=== PATIENT | female | born 1960 | race Caucasian/White ===

== ENCOUNTER → 2016-07-14 | Outpatient (CLI) | payer BC ==
[~2016-07-14] MED LIST: LEVO25TA PO; MULT-506 PO; THY/30 PO
--- NOTE | 2016-07-15 08:26 | MAMMOGRAPHY REPORT ---
BILATERAL DIGITAL SCREENING MAMMOGRAM TOMOSYNTHESIS WITH CAD: 07/14/2016 CLINICAL HISTORY: Routine screening. Patient has no complaints. TECHNIQUE: Breast tomosynthesis in addition to standard 2D mammography was performed. Current study was also evaluated with a Computer Aided Detection (CAD) system. COMPARISON: Comparison is made to exams dated: 06/07/2015 mammogram, 08/05/2012 mammogram, 02/27/2011 mammogram, 10/30/2009 mammogram - [facility], 10/26/2008, and 09/03/2006. BREAST COMPOSITION: The tissue of both breasts is heterogeneously dense, which may obscure small ma sses. FINDINGS: There is a small cluster of microcalcifications in the upper outer posterior right breast , for which additional spot magnification views are recommended. There are other scattered benign-appearing rim calcifications in the breasts. No other suspicious m ass, architectural distortion or cluster of microcalcifications is seen. IMPRESSION: ACR BI-RADS CATEGORY 0: INCOMPLETE EVALUATION: NEED ADDITIONAL IMAGING EVALUATION The small cluster of microcalcifications in the upper outer posterior right breast need additional e valuation. The patient will be called to schedule an appointment. Approximately 10% of breast cancers are not detected with mammography. A negative mammographic repor t should not delay biopsy if a clinically suggestive mass is present. Jaida Altamirano M.D. ay/:07/14/2016 17:35:30 Needle Grader: Kaleigh FORD)(Amanda), [facility] letter sent: Addl Imaging 0 BI-RADS Code: ACR BI-RADS Category 0: Incomplete Evaluation: Need Additional Imaging Evaluation
== END | disposition home or self-care (01) ==
LOC: C.MAMM 13:33
PROVIDERS: ATTEND Physician Assistant
DX: Z12.31 Encounter for screening mammogram for malignant neoplasm of breast (principal); R92.0 Mammographic microcalcification found on diagnostic imaging of breast

== ENCOUNTER → 2016-07-22 | Outpatient (CLI) | payer BC ==
--- NOTE | 2016-07-22 13:18 | MAMMOGRAPHY REPORT ---
UNILATERAL RIGHT DIGITAL DIAGNOSTIC MAMMOGRAM: 07/22/2016 CLINICAL HISTORY: 56 year old woman called back from screening mammography for a small cluster of mi crocalcifications in the upper outer posterior right breast. TECHNIQUE: Spot magnification right CC and ML views were obtained. COMPARISON: Comparison is made to exams dated: 07/14/2016 mammogram, 06/07/2015 mammogram, 08/05/2012 m ammogram, 02/27/2011 mammogram, 10/30/2009 mammogram - [facility], and 10/26/2008. BREAST COMPOSITION: The tissue of the right breast is heterogeneously dense, which may obscure smal l masses. FINDINGS: There is a small, 1.5 mm cluster of somewhat pleomorphic microcalcifications in the upper outer posterior right breast, new compared to prior exams. No obvious associated mass or it business process architect ural distortion. There are also a few new benign rim calcifications in the visualized right breast. The cluster microcalcifications is indeterminate, warranting further evaluation with tissue sampli ng. IMPRESSION: ACR BI-RADS CATEGORY 4: SUSPICIOUS Right breast stereotactic guided biopsy is recommended for a new small, 1.5 mm cluster of pleomorphi c microcalcifications in the upper outer posterior breast. These results and recommendations were discussed with the patient at the time of the exam. She tent atively scheduled the biopsy prior to leaving our department. CURRENT PENRAD IMPRESSIONS: Approximately 10% of breast cancers are not detected with mammography. A negative mammographic repor t should not delay biopsy if a clinically suggestive mass is present. Jaida Altamirano M.D. ay/:07/22/2016 15:19:12 Hose Inspector And Patcher: Shavonne Chiang RT(R)(M), [facility] letter sent: Abnormal 4/5 BI-RADS Code: ACR BI-RADS Category 4: Suspicious
== END | disposition home or self-care (01) ==
LOC: C.MAMM 08:12
PROVIDERS: ATTEND Physician Assistant
DX: R92.0 Mammographic microcalcification found on diagnostic imaging of breast (principal)

== ENCOUNTER → 2016-07-29 | Outpatient (CLI) | payer BC ==
--- NOTE | 2016-07-29 14:58 | Discharge Instructions ---
Discharge Instructions Procedure Procedure Date: July 29, 2016. Reason for visit: Right Calcifications. Discharge Discharge Date: July 29, 2016. Discharge Diagnosis: post right breast stereotactic guided biopsy Instructions Activity Recommendations: Additional Limitations (see below) Return to School/Work: no limitations Recommended Home Diet: No Limitations Provider Instructions: ACTIVITY RECOMMENDATIONS: * No lifting, pushing, pulling or exercising the affected side for three days. RETURN TO SCHOOL/WORK: * You may return to work/school after the procedure, but do not perform any strenuous activities for 24 to 48 hours. MEDICATIONS: * Tylenol (two 325 mg) every four to six hours if needed for mild pain (if not allergic to Tylenol). DIET: * Resume previous diet. SPECIAL CARE INSTRUCTIONS: * Keep biopsy site dry for 24 hours. May shower after 24 hours, but do not soak (bathe) incision. * May remove Tegaderm (plastic patch) tomorrow AFTER showering. * Leave the steri-strips on for one week. Allow the steri-strips to fall off by themselves. If not off after one week, you may remove them. You may place a Bandaid crosswise over the strips, if desired. * Apply ice 10 minutes on and 10 minutes off as needed. * Wear a bra at bedtime to sleep more comfortably for 2-3 days. * Your referring physician should have the results after approximately 5 to 7 business days. * Call for unusual bleeding, fever, drainage, etc or if you have any questions call [phone] during normal business hours or after hours call Dr Altamirano, . FOLLOW UP VISIT: Follow-up with Referring Physician as scheduled. Allergies Coded Allergies: Prednisone (Unverified Adverse Reaction, Unknown, UNKNOWN, 07/14/16) Nancy Mcqueen Recommendations: Call your doctor if: * Temperature above 101 degrees * Pain not relieved by pain medicine ordered * There is increased drainage or redness from any incision * You have any unanswered questions or concerns. Your Doctors Instructions noted above were prepared by provider Jaida Altamirano. Patient Signature Section: Patient Instructions Signature Page Kimberli Jose Patient (or Guardian) Signature/Date: I have read and understand the instructions given to me by my caregivers. Caregiver/RN/Doctor Signature/Date: The above-named patient and/or guardian has received patient instructions on this date. + Original Patient Signature Page (only) stays with chart. Please make copy for patient.
--- NOTE | 2016-07-30 13:07 | MAMMOGRAPHY REPORT ---
UNILATERAL RIGHT DIGITAL DIAGNOSTIC MAMMOGRAM: 07/29/2016 CLINICAL HISTORY: Status post right breast stereotactic guided biopsy of a small cluster of microcal cifications in the upper outer posterior breast. Please refer to the report for right breast stereotactic guided biopsy performed at the same time fo r full detail. IMPRESSION: POST PROCEDURE IMAGING FOR MARKER PLACEMENT Please refer to the report for right breast stereotactic guided biopsy performed at the same time fo r full detail. Approximately 10% of breast cancers are not detected with mammography. A negative mammographic repor t should not delay biopsy if a clinically suggestive mass is present. Jaida Altamirano M.D. ay/:07/29/2016 15:00:54 Historic Sites Registrar: Mariam EMERSON(Carlton)(M), [facility] BI-RADS Code: Post Procedure Imaging For Marker Placement
--- NOTE | 2016-07-30 13:07 | MAMMOGRAPHY REPORT ---
STEREOTACTIC GUIDED BIOPSY RIGHT BREAST: 07/29/2016 CLINICAL HISTORY: Tiny cluster of indeterminate microcalcifications in the upper outer posterior rig ht breast. Family history of breast cancer = mother. COMPARISON: Comparison is made to exams dated: 07/22/2016 mammogram, 07/14/2016 mammogram, 06/07/2015 m ammogram, 08/05/2012 mammogram, 02/27/2011 mammogram, and 10/30/2009 mammogram - [facility]. PATIENT CONSENT: After explaining the risks, benefits and alternatives of the procedure to the patie nt, informed consent was obtained both verbally and in writing. Specific risks include: Bleeding, i nfection, puncture of adjacent structure, nontarget biopsy, sampling error, metal allergy and medica tion reaction. PROCEDURE DESCRIPTION: A time-out was performed and the right breast was confirmed as the site of bi opsy. The patient was placed prone on the stereotactic biopsy table and the breast was placed in lat eral-medial compression. A schedule hanger image was obtained that demonstrated the clustered microcalcificati ons in question. They are amenable to sterotactic biopsy. Then +15 and -15 stereo pair images wer e obtained. The calcifications were targeted utilizing the coordinates obtained by the computer. Th e skin was prepped with Betadine. 1% Lidocaine with and without epinipherine was administered as loc al anesthesia. A small skin incision was made. Through the incision, the needle was inserted to the depth determined by the computer. 10 samples were obtained using a [employer] 9-gauge vacuum-amelia rashad biopsy device. The specimen radiograph demonstrated the entire parts sales representative cluster of microca lcifications, therefore, a metallic marker was placed at the biopsy site. There was no immediate com plication. Hemostasis was achieved after several minutes of manual compression. The samples were se nt to pathology in 2 containers. The first was labeled "with calcifications", and the second was la beled "no calcifications". All of the samples were obtained from the same single biopsy site. Postprocedure CC and ML views of the right breast demonstrate a new dumbbell shaped metallic biopsy marker and no abnormal hematoma in the upper outer posterior breast, at the site of the biopsied clu stered microcalcifications. IMPRESSION: STEREOTACTIC GUIDED BIOPSY Status post right breast stereotactic guided biopsy of a tiny cluster of microcalcifications in the upper outer posterior breast, with biopsy marker placed at the site. The patient will receive written notification of the results. Jaida Altamirano M.D. ay/:07/29/2016 15:29:38 Jewelry Setter: Mariam FORD)(Amanda), [facility]
== END | disposition home or self-care (01) ==
LOC: C.MAMM 13:12
PROVIDERS: ATTEND Physician Assistant
DX: R92.0 Mammographic microcalcification found on diagnostic imaging of breast (principal); Z80.3 Family history of malignant neoplasm of breast

== ENCOUNTER 2016-08-15 10:25 | Emergency (ER) | payer BC ==
[~2016-08-15] VITALS: Ht 160 cm; Wt 65.5 kg
[~2016-08-15 10:25] MED LIST changes: -THY/30 PO
[2016-08-15 10:29] VITALS: TEMP 36.3; Ht 160 cm; Wt 65.5 kg
[2016-08-15] MEDS ORDERED: THY/30 PO (11:05)
--- NOTE | 2016-08-15 11:45 | DIAGNOSTIC IMAGING REPORT ---
CHEST ONE VIEW PORTABLE HISTORY: Atypical Chest Pain COMPARISON: None. FINDINGS: The lungs are clear. Cardiac silhouette is normal in size. No pleural effusions. No pneumothorax. IMPRESSION: No acute process. Electronically signed by: Darnell Pena M.D. 08/15/2016 11:44 AM Dictated Date/Time: 08/15/2016 11:42 AM
[2016-08-15 13:07] LABS: BASO % 0.5 %; BASO ABS # 0.04 K/uL (0-0.2); COMPLETE YES; EOS % 0.7 %; HEMATOCRIT 47.9 % (37-47); IG% 0.1 %; LYMPH % 28.4 %; LYMPH ABS # 2.09 K/uL (1.2-3.4); MEAN CELL VOLUME 89.7 fL (80-100); MEAN CORPUSCULAR HEMOGLOBIN 29.8 pg (25-34); MEAN CORPUSCULAR HGB CONC 33.2 g/dl (32-36); MEAN PLATELET VOLUME 9.6 fL (7.4-10.4); MONO % 6.4 %; NEUT % 63.9 %; PLATELET COUNT 304 K/uL (130-400); RED BLOOD COUNT 5.34 M/uL (4.2-5.4); WHITE BLOOD COUNT 7.36 K/uL (4.8-10.8)
[2016-08-15 13:25] LABS: BLOOD UREA NITROGEN 15 mg/dl (7-18); BUN/CREATININE RATIO 25.1 (10-20); CALCIUM 10.2 mg/dl (8.5-10.1); CARBON DIOXIDE 26 mmol/L (21-32); CHLORIDE 111 mmol/L (98-107); CREATININE 0.61 mg/dl (0.60-1.20); GLUCOSE 91 mg/dl (70-99); POTASSIUM 3.5 mmol/L (3.5-5.1); SODIUM 144 mmol/L (136-145)
[2016-08-15] MEDS ORDERED: KETOROLAC TROMETHAMINE 30 MG/ML VIAL IV STA (13:42)
[2016-08-15 14:30] VITALS: BP 124/70; PULSE 67; O2SAT 98
--- NOTE | 2016-08-15 15:38 | EMERGENCY ROOM VISIT NOTE ---
History Report prepared by Elvin: Shlomo Johnson Under the Supervision of: Dr. Iván Gandhi D.O. First contact with patient: 10:44 Chief Complaint: COUGH Stated Complaint: CHEST PRESSURE History of Present Illness The patient is a 56 year old female who presents to the Emergency Room with complaints of a persistent illness that started 3 days ago. She says that she wants her lungs to be listened to in order to see if she has an infection. The patient states that she has had a tickle in her throat, and has had a bit of a cough. She denies any back pain, runny nose, jaw pain, arm pain, coughing up blood, or calf swelling. The patient notes that she has a chest pressure on palpation, but it is not worsened on exertion. It is brought on by moving, twisting, turning, and bending. Otherwise, the pain is not present. The patient adds that she had a recent biopsy for a microcalcification from a mammogram, but everything turned out to be okay. She has not had any recent trips. The patient is a non-smoker, denies swelling of the calf, recent trips,or recent surgeries. Source of History: patient Onset: 3 days ago Position: other (global - illness) Timing: other (persistent) Associated Symptoms: + cough, + chest pain (pressure on palpation, not worsened on exertion), No back pain Note: Associated symptoms: Tickle in throat. Denies runny nose, jaw pain, arm pain, coughing up blood, calf swelling. Review of Systems See HPI for pertinent positives & negatives. A total of 10 systems reviewed and were otherwise negative. Past Medical & Surgical Medical Problems: (1) Hypothyroidism Family History FH: cancer Social History Smoking Status: Never Smoker Alcohol Use: none Drug Use: none Marital Status: Occupation Status: employed Current/Historical Medications Scheduled Multivitamin (Multivitamin), 1 TAB PO DAILY Thyroid ([place] Thyroid), 30 MG PO TID Allergies Coded Allergies: Prednisone (Unverified Adverse Reaction, Unknown, UNKNOWN, 08/15/16) Physical Exam Vital Signs Date Time Temp Pulse Resp B/P (MAP) Pulse Ox O2 Delivery O2 Flow Rate FiO2 08/15/16 14:30 67 20 124/70 98 Room Air 08/15/16 12:30 68 20 149/88 99 Room Air 08/15/16 10:58 Room Air 08/15/16 10:29 36.3 82 18 152/91 100 Room Air Physical Exam GENERAL: sitting up in bed, alert, well appearing, well nourished, no distress, non-toxic EYE EXAM: normal conjunctiva OROPHARYNX: no exudate, no erythema, lips, buccal mucosa, and tongue normal and mucous membranes are moist NECK: supple, no nuchal rigidity, no adenopathy, non-tender LUNGS: Clear to auscultation. Normal chest wall mechanics HEART: no murmurs, S1 normal and S2 normal CHEST: Reproducible anterior chest wall pain. ABDOMEN: abdomen soft, non-tender, normo-active bowel sounds, no masses, no rebound or guarding. BACK: Back is symmetrical on inspection and there is no deformity, no midline tenderness, no CVA tenderness. SKIN: no rashes and no bruising UPPER EXTREMITIES: upper extremities are grossly normal. LOWER EXTREMITIES: calves equal bilaterally NEURO EXAM: Normal sensorium, cranial nerves II-XII grossly intact, normal speech, no gross weakness of arms, no gross weakness of legs. Medical Decision & Procedures ER Provider Diagnostic Interpretation: X-ray results as stated below per my review and the radiologist's interpretation : CHEST ONE VIEW PORTABLE HISTORY: Atypical Chest Pain COMPARISON: None. FINDINGS: The lungs are clear. Cardiac silhouette is normal in size. No pleural effusions. No pneumothorax. IMPRESSION: No acute process. Electronically signed by: Darnell Pena M.D. 08/15/2016 11:44 AM Dictated Date/Time: 08/15/2016 11:42 AM Laboratory Results 08/15/16 12:40 Red Blood Count 5.34, Mean Corpuscular Volume 89.7, Mean Corpuscular Hemoglobin 29.8, Mean Corpuscular Hemoglobin Concent 33.2, Mean Platelet Volume 9.6, Neutrophils (%) (Auto) 63.9, Lymphocytes (%) (Auto) 28.4, Monocytes (%) (Auto) 6.4, Eosinophils (%) (Auto) 0.7, Basophils (%) (Auto) 0.5, Neutrophils # (Auto) 4.70, Lymphocytes # (Auto) 2.09, Monocytes # (Auto) 0.47, Eosinophils # (Auto) 0.05, Basophils # (Auto) 0.04 08/15/16 12:40 Test 08/15/16 12:40 White Blood Count 7.36 K/uL (4.8-10.8) Red Blood Count 5.34 M/uL (4.2-5.4) Hemoglobin 15.9 g/dL (12.0-16.0) Hematocrit 47.9 % (37-47) Mean Corpuscular Volume 89.7 fL (80-100) Mean Corpuscular Hemoglobin 29.8 pg (25-34) Mean Corpuscular Hemoglobin Concent 33.2 g/dl (32-36) Platelet Count 304 K/uL (130-400) Mean Platelet Volume 9.6 fL (7.4-10.4) Neutrophils (%) (Auto) 63.9 % Lymphocytes (%) (Auto) 28.4 % Monocytes (%) (Auto) 6.4 % Eosinophils (%) (Auto) 0.7 % Basophils (%) (Auto) 0.5 % Neutrophils # (Auto) 4.70 K/uL (1.4-6.5) Lymphocytes # (Auto) 2.09 K/uL (1.2-3.4) Monocytes # (Auto) 0.47 K/uL (0.11-0.59) Eosinophils # (Auto) 0.05 K/uL (0-0.5) Basophils # (Auto) 0.04 K/uL (0-0.2) RDW Standard Deviation 40.3 fL (36.4-46.3) RDW Coefficient of Variation 12.3 % (11.5-14.5) Immature Granulocyte % (Auto) 0.1 % Immature Granulocyte # (Auto) 0.01 K/uL (0.00-0.02) Anion Gap 7.0 mmol/L (3-11) Est Creatinine Clear Calc Drug Dose 93.7 ml/min Estimated GFR () 117.5 Estimated GFR (Non- 101.3 BUN/Creatinine Ratio 25.1 (10-20) Calcium Level 10.2 mg/dl (8.5-10.1) Total Bilirubin 0.5 mg/dl (0.2-1) Direct Bilirubin 0.1 mg/dl (0-0.2) Aspartate Amino Transf (AST/SGOT) 35 U/L (15-37) Alanine Aminotransferase (ALT/SGPT) 52 U/L (12-78) Alkaline Phosphatase 107 U/L (45-117) Troponin I < 0.015 ng/ml (0-0.045) Total Protein 8.2 gm/dl (6.4-8.2) Albumin 4.3 gm/dl (3.4-5.0) Lipase 112 U/L (73-393) Laboratory results per my review. ECG Indication: chest pain Rate (beats per minute): 68 Rhythm: sinus rhythm Findings: no ectopy, other (normal axis) ED Course ED COURSE: Vital signs were reviewed and showed hypertensive vitals. The patients medical record was reviewed The above diagnostic studies were performed and reviewed. ED treatments and interventions as stated above. 1108: The patient was evaluated in room C5. A complete history and physical examination was performed. 1342: Ordered Toradol Inj 30 mg IV. 1347: I reevaluated and updated the patient. 1408: Upon reevaluation, the patient is resting comfortably.I discussed my findings with the patient and she understands and agrees with the treatment plan. Based on the patients age, coexisting illnesses, exam and lab findings the decision to treat as an outpatient was made. The patient remained stable while under my care. The patient appeared well at the time of discharge. Medical Decision Differential diagnoses includes but is not limited to acute coronary syndrome, myocardial infarction, pericarditis, pulmonary embolus, aortic dissection, pneumonia, pneumothorax, musculoskeletal, shingles, esophageal. Medication Reconciliation: I attest that I have personally reviewed the patient' s current medication list. Blood pressure screening: Patient was found to have an elevated blood pressure and was referred to their primary doctor for recheck and further treatment. Patient is a 56-year-old female who presents the ER with reproducible anterior chest wall pain. This pain is reproducible on palpation and only present with moving. It is not present with breathing. She has no jaw pain, arm pain or shortness of breath. Chest x-ray along with troponin and EKG were unremarkable. Patient was updated regards to findings. She had no PE risk factors. Patient was discharged follow-up with her primary care doctor for musculoskeletal chest pain. Discussed with Pt concerning signs and symptoms to watch out for. Pt was instructed to follow up with their PCP and discussed with the patient their option to return to the ED at anytime for persistent or worsening symptoms. The appropriate anticipatory guidance and out-patient management, including indications for return to the emergency department, were explained at length to the patient and understood. Impression Primary Impression: Chest pain Scribe Attestation The scribe's documentation has been prepared under my direction and personally reviewed by me in its entirety. I confirm that the note above accurately reflects all work, treatment, procedures, and medical decision making performed by me. Departure Information Dispostion Home / Self-Care Referrals BobJesusita OMKAR (PCP) Forms HOME CARE DOCUMENTATION FORM, IMPORTANT VISIT INFORMATION Patient Instructions Chest Pain - [facility], [facility] Additional Instructions Please follow up with your primary care doctor with in the next 24 hours. Any worsening of your symptoms, please return to the ED immediately. This includes jaw pain, arm pain, shortness of breath, new or change in her chest pain, or any other concerning signs or symptoms from your standpoint. Problem Qualifiers Primary Impression: Chest pain Chest pain type: unspecified Qualified Codes: R07.9 - Chest pain, unspecified
== END 2016-08-15 14:31 | disposition home or self-care (01) ==
LOC: C.EDB 10:27 → C.EDC 14:31
DX: R07.89 Other chest pain (principal); R05 Cough; E03.9 Hypothyroidism, unspecified

== ENCOUNTER → 2017-08-03 | Outpatient (CLI) | payer OTHER ==
[~2017-08-03] MED LIST changes: -LEVO25TA PO; +THY/30 PO
--- NOTE | 2017-08-04 14:22 | MAMMOGRAPHY REPORT ---
BILATERAL DIGITAL SCREENING MAMMOGRAM TOMOSYNTHESIS WITH CAD: 08/03/2017 CLINICAL HISTORY: Routine screening. Patient has no complaints. TECHNIQUE: Breast tomosynthesis in addition to standard 2D mammography was performed. Current study was also evaluated with a Computer Aided Detection (CAD) system. COMPARISON: Comparison is made to exams dated: 07/14/2016 mammogram, 06/07/2015 mammogram, 08/05/2012 ma mmogram, 02/27/2011 mammogram, 10/30/2009 mammogram - [facility], and 10/26/2008. BREAST COMPOSITION: The tissue of both breasts is heterogeneously dense, which may obscure small mas ses. FINDINGS: No suspicious mass, architectural distortion or cluster of microcalcifications is seen. T he glandular pattern is similar to prior mammograms. There is a stable dumbbell-shaped biopsy marker clip in the upper outer posterior right breast. Stable benign coarse calcifications and rim calcifi cations bilaterally. IMPRESSION: ACR BI-RADS CATEGORY 1: NEGATIVE There is no mammographic evidence of malignancy. A 1 year screening mammogram is recommended. The pa tient will receive written notification of the results. Approximately 10% of breast cancers are not detected with mammography. A negative mammographic report should not delay biopsy if a clinically suggestive mass is present. Jaida Altamirano M.D. ay/:08/03/2017 16:33:47 Assistant Executive Housekeeper: Kaleigh EMERSON(Carlton)(Amanda), [facility] letter sent: Normal 1/2 BI-RADS Code: ACR BI-RADS Category 1: Negative
== END | disposition home or self-care (01) ==
LOC: C.MAMM 12:12
PROVIDERS: ATTEND Physician Assistant
DX: Z12.31 Encounter for screening mammogram for malignant neoplasm of breast (principal)